=== PATIENT | female | born 2000 ===

== ENCOUNTER 2018-09-16 17:57 | Emergency (ER) | payer MEDICAID ==
[2018-09-16 18:28] VITALS: BMI 21.9
[2018-09-16 18:30] VITALS: BP 132/83; PULSE 90; RESP 16; TEMP 98; O2SAT 100
[2018-09-16] MEDS ORDERED: cefTRIAXone (Rocephin) 250 mg Inj IM STA (19:20)
--- NOTE | 2018-09-16 19:54 | C.PDOC ---
History Of Present Illness 18 y/o female presents to the ED for possible STD exposure. Patient states she was informed today that her partner tested positive for chlamydia. She has no symptoms at present. Patient denies having any pain, vaginal irritation, skin lesions, vaginal bleeding, or discharge. She has no medical history or allergies to medication. Time Seen by Provider: 09/16/18 19:11 Chief Complaint (Nursing): Medical Clearance History Per: Patient History/Exam Limitations: no limitations Onset/Duration Of Symptoms: Hrs Current Symptoms Are (Timing): Still Present Past Medical History Reviewed: Historical Data, Nursing Documentation, Vital Signs Vital Signs: Last Vital Signs Temp 98.0 F 09/16/18 18:28 Pulse 90 09/16/18 18:28 Resp 16 09/16/18 18:28 BP 132/83 09/16/18 18:28 Pulse Ox 100 09/16/18 18:28 - Medical History PMH: No Chronic Diseases Denies: Chronic Kidney Disease Other Surgeries: L ovarian cyst removal Family History: States: Unknown Family Hx - Social History Hx Alcohol Use: No Hx Substance Use: No - Immunization History Hx Tetanus Toxoid Vaccination: No Hx Influenza Vaccination: No Hx Pneumococcal Vaccination: No Review Of Systems Constitutional: Positive for: Other (STD exposure). Negative for: Fever Gastrointestinal: Negative for: Nausea, Vomiting, Abdominal Pain Genitourinary: Negative for: Dysuria, Frequency, Vaginal Discharge, Vaginal Bleeding, Pelvic Pain Skin: Negative for: Rash Physical Exam - Physical Exam Appears: Non-toxic, No Acute Distress Skin: Normal Color, Warm, No Rash Head: Atraumatic, Normacephalic Eye(s): bilateral: Normal Inspection (no scleral icterus), PERRL, EOMI Oral Mucosa: Moist Neck: Normal ROM, Supple Chest: Symmetrical Respiratory: No Accessory Muscle Use, Other (Normal inspiratory effort) Gastrointestinal/Abdominal: Soft, No Tenderness, No Distention Back: Normal Inspection Extremity: Bilateral: Atraumatic, Normal ROM Pulses: Left Dorsalis Pedis: Normal, Right Dorsalis Pedis: Normal Neurological/Psych: Oriented x3, Normal Cranial Nerves Gait: Steady ED Course And Treatment O2 Sat by Pulse Oximetry: 100 (RA) Pulse Ox Interpretation: Normal Medical Decision Making Medical Decision Making: Impression: STD exposure Plan: - Chlamydia/GC sent Will treat empirically with Rocephin and Zithromax. Patient advised someone will call if results are abnormal. Instructed follow up with [facility] [employer]. 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 - Scribe Statement The provider has reviewed the documentation as recorded by the Scriberwin Daniels All medical record entries made by the Fatouiberwin were at my direction and personally dictated by me. I have reviewed the chart and agree that the record accurately reflects my personal performance of the history, physical exam, medical decision making, and the department course for this patient. I have also personally directed, reviewed, and agree with the discharge instructions and disposition.
== END 2018-09-16 20:00 | disposition home or self-care (01) ==
LOC: C.ER 17:57
DX: Z20.2 Contact with and (suspected) exposure to infections with a predominantly sexual mode of transmission (principal)
CPT/HCPCS: 87491; 87591; 96372; 99282; J0696